=== PATIENT | male | born 1960 | race Caucasian/White ===

== ENCOUNTER 2016-10-23 14:23 | Observation (INO) | payer OTHER ==
[~2016-10-23] VITALS: Ht 193 cm; Wt 113.0 kg
[~2016-10-23 14:23] MED LIST: ASPI81TA82 PO
[2016-10-23 14:44] VITALS: BP 134/74; PULSE 60; RESP 24; O2SAT 95
[2016-10-23] MEDS ORDERED: ONDANSETRON HCL 4 MG/2 ML VIAL IV PUSH ONE ×2 (15:00→18:00)
[2016-10-23] MEDS ORDERED: HYDROmorphone HCL PF 1 MG/ML VIAL IV PUSH ONE (15:00)
[2016-10-23 15:08] VITALS: RESP 18; TEMP 98.3; O2SAT 95
--- NOTE | 2016-10-23 15:15 | PD ---
HPI Chief Complaint: Fall Time Seen by Provider: 14:55 Travel History International Travel<30 days: No Contact w/Intl Traveler<30days: No Traveled to known affect area: No History of Present Illness HPI 56-year-old male presents via EMS for evaluation after a fall. Prior to arrival he fell off of a ladder at approximately 7 feet height, landed on his back. He did hit the back of his head against the ground. Denies loss of consciousness. He is complaining of generalized pain along his neck, mid and lower back as well as some chest pain and upper abdominal pain. Pain is moderate, aggravated by movement. He endorses slight shortness of breath. Denies nausea or vomiting, headache, blurred vision, numbness or tingling or weakness or injury to the extremities. He does take aspirin daily, denies any other blood thinner use. He has no other complaints. PFSH Past Medical History Arthritis: No Asthma: No Atrial Fibrillation: Yes (CARDIOVERTED ) Blood Disorders: No Anxiety: No Depression: No Heart Rhythm Problems: Yes (AFIB) Cancer: No Cardiovascular Problems: Yes (AFIB/CARDIOVERSION X 1 YR AGO) High Cholesterol: No Chemotherapy: No Chest Pain: No Congestive Heart Failure: No COPD: No Cerebrovascular Accident: No Diabetes: No Diminished Hearing: No Endocrine: No GERD: No Genitourinary: No Headaches: No Hepatitis: No Hypertension: No Immune Disorder: No Kidney Stones: Yes Musculoskeletal: Yes (1983 RUPTURED L3-L5) Neurologic: No Psychiatric: No Reproductive: No Respiratory: No Migraines: Yes Myocardial Infarction: No Radiation Therapy: No Renal Failure: No Seizures: No Sleep Apnea: No Thyroid Disease: No Ulcer: No Past Surgical History Abdominal Surgery: Yes (RIGHT HERNIA REPAIR) Appendectomy: No Cholecystectomy: Yes Genitourinary Surgery: Yes Other Surgery: Yes Social History Alcohol Use: Yes (OCCAS) Tobacco Use: No Substance Use: No Allergies-Medications (Allergen,Severity, Reaction): Coded Allergies: Bee Sting (Verified Allergy, Mild, 11/27/14) Percocet (Verified Allergy, Mild, NAUSEATED, 11/27/14) Reported Meds & Prescriptions Reported Meds & Active Scripts Active Reported [place] ([place]) 1 Cap Zinc 25 Mg Tab Mg PO DAILY Vitamin D (Cholecalciferol) 2,000 Unit Cap Vit[employer] Energy Vitamin (Cyanocobalamin) 1,500 Mcg Tab Mcg SL DAILY Aspirin 81 Mg Chew 81 Mg CHEW DAILY Multiple Vitamin 1 Tab 1 Tab PO DAILY Review of Systems Except as stated in HPI: all other systems reviewed are Neg Physical Exam Narrative GENERAL: Well-developed well-nourished male in no acute distress cervical collar in place. SKIN: Warm and dry. HEAD: Atraumatic. Normocephalic. EYES: Pupils equal and round. No scleral icterus. No injection or drainage. ENT: No nasal bleeding or discharge. Mucous membranes pink and moist. NECK: Trachea midline. No JVD. CARDIOVASCULAR: Regular rate and rhythm. No murmur appreciated. RESPIRATORY: No accessory muscle use. Clear to auscultation. Breath sounds equal bilaterally. GASTROINTESTINAL: Abdomen soft, tender to palpation epigastrium/left upper quadrant without guarding. MUSCULOSKELETAL: No obvious deformities. Tender to palpation along cervical thoracic or lumbar midline spine. Tender to palpation mid chest wall. NEUROLOGICAL: Awake and alert. No obvious cranial nerve deficits. Motor grossly within normal limits. Normal speech. PSYCHIATRIC: Appropriate mood and affect; insight and judgment normal. Data Data Last Documented VS Vital Signs Date Time Temp Pulse Resp B/P Pulse Ox O2 Delivery O2 Flow Rate FiO2 10/23/16 17:37 92 Room Air 10/23/16 17:37 119/65 10/23/16 15:29 51 18 10/23/16 15:08 98.3 Orders Chest, Single Ap (10/23/16 14:53) Ct Brain W/O Iv Contrast(Rout) (10/23/16 14:53) Ct Cerv Spine W/O Contrast (10/23/16 14:53) Ct Abd/Pel W Iv Contrast(Rout) (10/23/16 14:53) Ct Thorax/ Chest W Iv Contrast (10/23/16 14:53) Ct Thor Spine W/O Contrast (10/23/16 14:53) Ct Lumb Spine W/O Contrast (10/23/16 14:53) Basic Metabolic Panel (Bmp) (10/23/16 14:53) Complete Blood Count With Diff (10/23/16 14:53) Prothrombin Time / Inr (Pt) (10/23/16 14:53) Act Partial Throm Time (Ptt) (10/23/16 14:53) Hydromorphone Pf Inj (Dilaudid Pf Inj) (10/23/16 15:00) Ondansetron Inj (Zofran Inj) (10/23/16 15:00) Ecg Monitoring (10/23/16 14:53) Oximetry (10/23/16 14:53) Iohexol 350 Inj (Omnipaque 350 Inj) (10/23/16 16:54) Hydromorphone Pf Inj (Dilaudid Pf Inj) (10/23/16 17:30) Ondansetron Inj (Zofran Inj) (10/23/16 18:00) Admit Order (Ed Use Only) (10/23/16 18:05) Ketorolac Inj (Toradol Inj) (10/23/16 18:15) Labs Laboratory Tests Test 10/23/16 14:55 White Blood Count 10.1 TH/MM3 Red Blood Count 4.51 MIL/MM3 Hemoglobin 13.9 GM/DL Hematocrit 40.0 % Mean Corpuscular Volume 88.6 FL Mean Corpuscular Hemoglobin 30.9 PG Mean Corpuscular Hemoglobin 34.9 % Concent Red Cell Distribution Width 13.3 % Platelet Count 230 TH/MM3 Mean Platelet Volume 7.6 FL Neutrophils (%) (Auto) 70.4 % Lymphocytes (%) (Auto) 21.7 % Monocytes (%) (Auto) 7.1 % Eosinophils (%) (Auto) 0.3 % Basophils (%) (Auto) 0.5 % Neutrophils # (Auto) 7.1 TH/MM3 Lymphocytes # (Auto) 2.2 TH/MM3 Monocytes # (Auto) 0.7 TH/MM3 Eosinophils # (Auto) 0.0 TH/MM3 Basophils # (Auto) 0.0 TH/MM3 CBC Comment DIFF FINAL Differential Total Cells 100 Counted Neutrophils % (Manual) 68 % Band Neutrophils % 11 % Lymphocytes % 13 % Monocytes % 4 % Eosinophils % 3 % Basophils % 1 % Neutrophils # (Manual) 8.0 TH/MM3 Differential Comment FINAL DIFF MANUAL Platelet Estimate NORMAL Platelet Morphology Comment NORMAL Spherocytes 1+ Ovalocytes 1+ Prothrombin Time 10.9 SEC Prothromb Time International 1.0 RATIO Ratio Activated Partial 23.5 SEC Thromboplast Time Sodium Level 140 MEQ/L Potassium Level 3.8 MEQ/L Chloride Level 106 MEQ/L Carbon Dioxide Level 26.7 MEQ/L Anion Gap 7 MEQ/L Blood Urea Nitrogen 14 MG/DL Creatinine 0.85 MG/DL Estimat Glomerular Filtration 93 ML/MIN Rate Random Glucose 103 MG/DL Calcium Level 8.9 MG/DL MDM Medical Decision Making Medical Screen Exam Complete: Yes Emergency Medical Condition: Yes Medical Record Reviewed: Yes Differential Diagnosis Compression fracture, retroperitoneal hematoma, contusion, strain, spinal cord injury, splenic laceration, pneumothorax, hemothorax Narrative Course 56-year-old male presents after falling off a ladder complaining of generalized neck, back pain as well as chest pain, mild shortness of breath and upper abdominal pain. On examination he has vertebral tenderness to palpation along the cervical thoracic and lumbar spine as well as epigastric/left upper quadrant tenderness, chest wall tenderness. Therefore CT imaging of the cervical, thoracic, lumbar spine as well as thorax and abdomen and pelvis have been ordered. The patient was given Dilaudid for pain control as well as Zofran for nausea. CT imaging is been reviewed. The cervical collar was removed. The patient's imaging studies were all negative. The patient received a second dose of Dilaudid because it continued to be in severe pain. We attempted to ambulate him however immediately upon standing he was nauseous and unable to ambulate more than one step. Discussed options with the patient including discharge with oral pain control, outpatient follow-up versus observational admission for IV pain medicine and after discussing with his he does not feel safe going home right now and this much pain. Therefore discussed with Dr. Soriano who is agreeable with admission to Dr. Champion. Diagnosis Primary Impression: Intractable back pain Admitting Information Admitting Physician Requests: David Resendiz October 23, 2016 15:15
[2016-10-23 15:19] LABS: AUTOMATED NEUTROPHIL # 7.1 TH/MM3 (1.8-7.7); BASOPHIL % 0.5 % (0.0-2.0); EOSINOPHIL % 0.3 % (0.0-4.0); HEMO FLAGS DIFF FINAL; LYMPH % 21.7 % (9.0-44.0); LYMPHOCYTE # 2.2 TH/MM3 (1.0-4.8); MEAN CELL VOLUME 88.6 FL (80.0-100.0); MEAN CORPUSCULAR HEMOGLOBIN 30.9 PG (27.0-34.0); MEAN CORPUSCULAR HGB CONC 34.9 % (32.0-36.0); MONO % 7.1 % (0.0-8.0); NEUT % 70.4 % (16.0-70.0); PLATELET COUNT 230 TH/MM3 (150-450); RED BLOOD COUNT 4.51 MIL/MM3 (4.50-5.90); RED CELL DISTRIBUTION WIDTH 13.3 % (11.6-17.2); WHITE BLOOD COUNT 10.1 TH/MM3 (4.0-11.0)
[2016-10-23 15:29] VITALS: BP 122/60; PULSE 51; RESP 18; O2SAT 94
[2016-10-23 15:29] LABS: APTT (PATIENT) 23.5 SEC (24.3-30.1); PROTHROMBIN TIME - PATIENT 10.9 SEC (9.8-11.6)
[2016-10-23] MEDS ORDERED: MISC1CAP2 (15:29)
[2016-10-23] MEDS ORDERED: MULTTAB67 PO (15:29)
[2016-10-23] MEDS ORDERED: ZINC25TA PO (15:29)
[2016-10-23] MEDS ORDERED: VITA200013 (15:29)
[2016-10-23] MEDS ORDERED: [UNRECOGNIZED DRUG - CODE] SL (15:29)
[2016-10-23] MEDS ORDERED: ASPI81CH CHEW (15:29)
[2016-10-23 15:44] LABS: BICARBONATE 26.7 MEQ/L (21.0-32.0); POTASSIUM 3.8 MEQ/L (3.5-5.1)
--- NOTE | 2016-10-23 16:06 | RADRPT ---
EXAM DATE/TIME: 10/23/2016 15:43 [facility] COMPARISON: CHEST SINGLE AP, November 27, 2014, 2:59. INDICATIONS : Back and chest pain after falling of a ladder, approximately 6 feet. MEDICAL HISTORY : Unobtainable. SURGICAL HISTORY : Unobtainable. ENCOUNTER: Initial ACUITY: 1 day PAIN SCORE: 8/10 LOCATION: Bilateral chest FINDINGS: A single view of the chest demonstrates the lungs to be symmetrically aerated without evidence of mas s, infiltrate or effusion. The cardiomediastinal contours are unremarkable. Osseous structures are intact. CONCLUSION: Normal examination. See Ackerman MD on October 23, 2016 at 16:05 Board Certified Radiologist. This report was verified electronically.
[2016-10-23 16:07] LABS: BANDS 11 % (0-6); BASOPHILS 1 % (0-2); EOSINOPHILS 3 % (0-4); POLYS (SEG NEUTROPHILS) 68 % (16-70); WBC DIFF SAMPLE 100
[2016-10-23 16:08] LABS: OVALOCYTES 1+ (NORMAL); PLATELET ESTIMATE SMEAR NORMAL (NORMAL); PLATELET MORPHOLOGY NORMAL (NORMAL); SCAN/DIFF FINAL DIFF MANUAL; SPHEROCYTES 1+ (NORMAL)
--- NOTE | 2016-10-23 16:30 | RADRPT ---
EXAM DATE/TIME: 10/23/2016 16:09 [facility] COMPARISON: CT BRAIN W/O CONTRAST, November 27, 2014, 4:32. INDICATIONS : Fall from ladder; head and neck pain. RADIATION DOSE: 56.35 CTDIvol (mGy) MEDICAL HISTORY : Cardiovascular disease. Renal calculi. SURGICAL HISTORY : Cholecystectomy. Inguinal hernia repair. ENCOUNTER: Initial ACUITY: 1 day PAIN SCALE: 4/10 LOCATION: cranial TECHNIQUE: Multiple contiguous axial images were obtained of the head. Using automated exposure control and adj ustment of the mA and/or kV according to patient size, radiation dose was kept as low as reasonably a chievable to obtain optimal diagnostic quality images. FINDINGS: CEREBRUM: The ventricles are normal for age. No evidence of midline shift, mass lesion, hemorrhage or acute in farction. No extra-axial fluid collections are seen. POSTERIOR FOSSA: The cerebellum and brainstem are intact. The 4th ventricle is midline. The cerebellopontine angle i s unremarkable. EXTRACRANIAL: The visualized portion of the orbits is intact. SKULL: The calvaria is intact. No evidence of skull fracture. CONCLUSION: Normal examination. See Ackerman MD on October 23, 2016 at 16:28 Board Certified Radiologist. This report was verified electronically.
[2016-10-23] MEDS ORDERED: IOHEXOL 350 MG/ML 10 ML VIAL (for RAD DIAG) IV ONE (16:54)
--- NOTE | 2016-10-23 16:56 | RADRPT ---
EXAM DATE/TIME: 10/23/2016 16:17 [facility] COMPARISON: No previous studies available for comparison. INDICATIONS : Fall from ladder, neck pain. RADIATION DOSE: 40.82 CTDIvol (mGy) MEDICAL HISTORY : Cardiovascular disease. Renal calculi. SURGICAL HISTORY : Inguinal hernia repair. Cholecystectomy. ENCOUNTER: Initial ACUITY: 1 day PAIN SCALE: 6/10 LOCATION: neck TECHNIQUE: Volumetric scanning of the cervical spine was performed. Multiplanar reconstructions in the sagittal, coronal and oblique axial planes were performed. Using automated exposure control and adjustment o f the mA and/or kV according to patient size, radiation dose was kept as low as reasonably achievable to obtain optimal diagnostic quality images. FINDINGS: VERTEBRAE: Normal vertebral body height. ALIGNMENT: No evidence of subluxation. C2-C3: The bony spinal canal is normal in size. No evidence of disc bulge or herniation. The neural forami na are bilaterally patent. C3-C4: The bony spinal canal is normal in size. No evidence of disc bulge or herniation. The neural forami na are bilaterally patent. C4-C5: The bony spinal canal is normal in size. No evidence of disc bulge or herniation. The neural forami na are bilaterally patent. C5-C6: The bony spinal canal is normal in size. No evidence of disc bulge or herniation. The neural forami na are bilaterally patent. C6-C7: The bony spinal canal is normal in size. No evidence of disc bulge or herniation. The neural forami na are bilaterally patent. C7-T1: The bony spinal canal is normal in size. No evidence of disc bulge or herniation. The neural forami na are bilaterally patent. CONCLUSION: Normal examination. See Ackerman MD on October 23, 2016 at 16:54 Board Certified Radiologist. This report was verified electronically.
--- NOTE | 2016-10-23 17:02 | RADRPT ---
EXAM DATE/TIME: 10/23/2016 16:25 [facility] COMPARISON: No previous studies available for comparison. INDICATIONS : Trauma; fall from ladder. IV CONTRAST: 95 cc Omnipaque 350 (iohexol) IV ; Cumulative dose for multiple exams. RADIATION DOSE: 10.06 CTDIvol (mGy) ; Combined studies - Thorax/Abdomen/Pelvis MEDICAL HISTORY : Cardiovascular disease. Renal calculi. SURGICAL HISTORY : Inguinal hernia repair. Cholecystectomy. ENCOUNTER: Initial ACUITY: 1 day PAIN SCALE: 4/10 LOCATION: Bilateral chest TECHNIQUE: Volumetric scanning of the chest was performed. Using automated exposure control and adjustment of t he mA and/or kV according to patient size, radiation dose was kept as low as reasonably achievable to obtain optimal diagnostic quality images. FINDINGS: LUNGS: There is no consolidation or pneumothorax. No concerning pulmonary nodule is visualized. PLEURA: There is no pleural thickening or pleural effusion. MEDIASTINUM: The heart and great vessels demonstrate no acute abnormality. There is no mediastinal or hilar lymph adenopathy. AXILLAE: Within normal limits. No lymphadenopathy. SKELETAL: Within normal limits for patient age. MISCELLANEOUS: The visualized upper abdominal organs demonstrate no acute abnormality. CONCLUSION: Normal examination. Cholecystectomy clips. See Ackerman MD on October 23, 2016 at 17:00 Board Certified Radiologist. This report was verified electronically.
--- NOTE | 2016-10-23 17:04 | RADRPT ---
EXAM DATE/TIME: 10/23/2016 16:20 [facility] COMPARISON: No previous studies available for comparison. INDICATIONS : Trauma; fall from ladder. IV CONTRAST: 95 cc Omnipaque 350 (iohexol) IV ; Cumulative dose for multiple exams. ORAL CONTRAST: No oral contrast ingested. RADIATION DOSE: 10.06 CTDIvol (mGy) ; Combined studies - Thorax/Abdomen/Pelvis MEDICAL HISTORY : Cardiovascular disease. Renal calculi. SURGICAL HISTORY : Inguinal hernia repair. Cholecystectomy. ENCOUNTER: Initial ACUITY: 1 day PAIN SCALE: 5/10 LOCATION: lower quadrant TECHNIQUE: Volumetric scanning of the abdomen and pelvis was performed. Using automated exposure control and ad justment of the mA and/or kV according to patient size, radiation dose was kept as low as reasonably achievable to obtain optimal diagnostic quality images. FINDINGS: LOWER LUNGS: The visualized lower lungs are clear. LIVER: Homogeneous density without lesion. There is no dilation of the biliary tree. Status post cholecyste ctomy. SPLEEN: Normal size without lesion. PANCREAS: Within normal limits. KIDNEYS: Normal in size and shape. There is no mass, stone or hydronephrosis. ADRENAL GLANDS: Within normal limits. VASCULAR: There is no aortic aneurysm. BOWEL/MESENTERY: The stomach, small bowel, and colon demonstrate no acute abnormality. There is no free intraperitone al air or fluid. ABDOMINAL WALL: Within normal limits. RETROPERITONEUM: There is no lymphadenopathy. BLADDER: No wall thickening or mass. REPRODUCTIVE: Within normal limits. INGUINAL: There is no lymphadenopathy or hernia. MUSCULOSKELETAL: Within normal limits for patient age. CONCLUSION: Normal examination. See Ackerman MD on October 23, 2016 at 17:02 Board Certified Radiologist. This report was verified electronically.
--- NOTE | 2016-10-23 17:24 | RADRPT ---
EXAM DATE/TIME: 10/23/2016 16:25 [facility] COMPARISON: No previous studies available for comparison. INDICATIONS : Trauma; fall from ladder. RADIATION DOSE: ; Reconstructed from previous dataset MEDICAL HISTORY : Cardiovascular disease. Renal calculi. SURGICAL HISTORY : Inguinal hernia repair. Cholecystectomy. ENCOUNTER: Initial ACUITY: 1 day PAIN SCALE: 7/10 LOCATION: lower back. TECHNIQUE: Volumetric scanning of the lumbar spine was performed. Multiplanar reconstructions in the sagittal, coronal and oblique axial planes were performed. Using automated exposure control and adjustment of the mA and/or kV according to patient size, radiation dose was kept as low as reasonably achievable t o obtain optimal diagnostic quality images. FINDINGS: VERTEBRAE: Normal vertebral body height. ALIGNMENT: No evidence of subluxation. T12-L1: The thecal sac has a normal diameter. No evidence of disc bulge or protrusion. The neural foramina are patent bilaterally. L1-L2: The thecal sac has a normal diameter. No evidence of disc bulge or protrusion. The neural foramina are patent bilaterally. L2-L3: The thecal sac has a normal diameter. No evidence of disc bulge or protrusion. The neural foramina are patent bilaterally. L3-L4: The thecal sac has a normal diameter. No evidence of disc bulge or protrusion. The neural foramina are patent bilaterally. L4-L5: The thecal sac has a normal diameter. No evidence of disc bulge or protrusion. The neural foramina are patent bilaterally. L5-S1: The thecal sac has a normal diameter. No evidence of disc bulge or protrusion. The neural foramina are patent bilaterally. CONCLUSION: Normal examination. See Ackerman MD on October 23, 2016 at 17:22 Board Certified Radiologist. This report was verified electronically.
--- NOTE | 2016-10-23 17:29 | RADRPT ---
EXAM DATE/TIME: 10/23/2016 16:25 [facility] COMPARISON: No previous studies available for comparison. INDICATIONS : Trauma; fall, back pain. RADIATION DOSE: ; Reconstructed from previous dataset MEDICAL HISTORY : Cardiovascular disease. Renal calculi. SURGICAL HISTORY : Inguinal hernia repair. Cholecystectomy. ENCOUNTER: Initial ACUITY: 1 day PAIN SCALE: 7/10 LOCATION: mid-back TECHNIQUE: Volumetric scanning of the thoracic spine was performed. Multiplanar reconstructions in the sagittal , coronal and oblique axial planes were performed. Using automated exposure control and adjustment o f the mA and/or kV according to patient size, radiation dose was kept as low as reasonably achievable to obtain optimal diagnostic quality images. FINDINGS: The vertebral bodies of the thoracic spine are in normal alignment without evidence of subluxation. Vertebral body height is maintained. No fractures are seen. T1-T2: Normal. T2-T3: The thecal sac has a normal diameter. No evidence of disc bulge or protrusion. T3-T4: The thecal sac has a normal diameter. No evidence of disc bulge or protrusion. T4-T5: The thecal sac has a normal diameter. No evidence of disc bulge or protrusion. T5-T6: The thecal sac has a normal diameter. No evidence of disc bulge or protrusion. T6-T7: The thecal sac has a normal diameter. No evidence of disc bulge or protrusion. T7-T8: The thecal sac has a normal diameter. No evidence of disc bulge or protrusion. T8-T9: The thecal sac has a normal diameter. No evidence of disc bulge or protrusion. T9-T10: The thecal sac has a normal diameter. No evidence of disc bulge or protrusion. T10-T11: The thecal sac has a normal diameter. No evidence of disc bulge or protrusion. T11-T12: The thecal sac has a normal diameter. No evidence of disc bulge or protrusion. T12-L1: The thecal sac has a normal diameter. No evidence of disc bulge or protrusion. CONCLUSION: Normal examination. No endplate fracture is identified. See Ackerman MD on October 23, 2016 at 17:26 Board Certified Radiologist. This report was verified electronically.
[2016-10-23] MEDS ORDERED: HYDROmorphone HCL PF 1 MG/ML VIAL IVS ONE (17:30)
[2016-10-23 17:37] VITALS: BP 119/65
[2016-10-23] MEDS ORDERED: KETOROLAC TROMETHAMINE 30 MG/ML (IVP) VIAL IV PUSH ONE ×2 (18:15)
--- NOTE | 2016-10-23 18:23 | HHI.HP ---
HPI Service [facility] Hospitalists Primary Care Physician Shankar Black MD Admission Diagnosis Intractable pain Chief Complaint: back pain after fall, unable to ambulate due to pain Travel History International Travel<30 Days: No Contact w/Intl Traveler <30 Da: No Traveled to Known Affected Are: No History of Present Illness 56-year-old relatively healthy male presents to the ER after a fall which occurred earlier today from a ladder. He says that he was on the "Little giant " ladder approximately 7 or 8 foot in the air when he was power washing his chimney. He lost balance and fell backwards off the ladder into a hayes grimm is known to the ground which fortunately was padded with grass. He denies any head trauma or loss of consciousness. No loss of bowel or bladder function. He has noted pain and what he says is L3 4 and 5 area where he has had pain before regarding some disc problems. He had multiple images done earlier all were negative for fracture however he was unable to ambulate due to significant pain and spasm in his lower back. Feels somewhat better after the Toradol shot and other analgesics he has received. Review of Systems Constitutional: DENIES: Diaphoretic episodes, Fatigue, Fever, Weight gain, Weight loss, Chills, Dizziness, Change in appetite, Night Sweats Endocrine: DENIES: Heat/cold intolerance, Polydipsia, Polyuria, Polyphagia Eyes: DENIES: Blurred vision, Diplopia, Eye inflammation, Eye pain, Vision loss , Photosensitivity, Double Vision Ears, nose, mouth, throat: DENIES: Tinnitus, Hearing loss, Vertigo, Nasal discharge, Oral lesions, Throat pain, Hoarseness, Ear Pain, Running Nose, Epistaxis, Sinus Pain, Toothache, Odynophagia Respiratory: DENIES: Apneas, Cough, Snoring, Wheezing, Hemoptysis, Sputum production, Shortness of breath Cardiovascular: DENIES: Chest pain, Palpitations, Syncope, Dyspnea on Exertion , PND, Lower Extremity Edema, Orthopnea, Claudication Gastrointestinal: DENIES: Abdominal pain, Black stools, Bloody stools, BRB per rectum, Constipation, Diarrhea, GERD, Nausea, Reflux, Vomiting, Difficulty Swallowing, Anorexia, See HPI Musculoskeletal: COMPLAINS OF: Joint pain, Back pain Integumentary: DENIES: Abnormal pigmentation, Nail changes, Pruritus, Rash Hematologic/lymphatic: DENIES: Bruising, Lymphadenopathy Immunologic/allergic: DENIES: Eczema, Urticaria Psychiatric: DENIES: Anxiety, Confusion, Mood changes, Depression, Hallucinations, Agitation, Suicidal Ideation, Homicidal Ideation, Delusions, History of Bipolar, History of Schizophrenia Past Family Social History Past Medical History Hx of Afib BPH IFG obesity vit D def Past Surgical History Bilat shoulder arthroscopy T&A Plantar fasciectomy Lap choly 2007 [facility] rpr 2006 Reported Medications ASA 81mg/d Fish oil 1000mg/d MVI one daily Allergies: Coded Allergies: Bee Sting (Verified Allergy, Mild, 11/27/14) Percocet (Verified Allergy, Mild, NAUSEATED, 11/27/14) Family History Father at 57 of [place] Mother had osteoA FH of Mult myeloma, HTN, Parkinson's Social History No tobacco since 1982, prior to that only smoked 2-3 cigarettes/d for a couple of years Drinks one to 2 alcoholic beverages occasionally on the weekends. Denies illicit drug use. 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 Has been for approximately 3 years. This is second marriage. Originally from [place]. Physical Exam Vital Signs Vital Signs Date Time Temp Pulse Resp B/P Pulse Ox O2 Delivery O2 Flow Rate FiO2 10/23/16 17:37 92 Room Air 10/23/16 17:37 119/65 10/23/16 15:29 51 18 122/60 94 Room Air 10/23/16 15:12 93 Room Air 10/23/16 15:08 98.3 18 95 Room Air 10/23/16 14:44 60 24 134/74 95 Physical Exam GENERAL: This is a well-nourished, well-developed patient with muscular build, in no apparent distress. Alert and oriented. Cooperative. SKIN: Few areas of erythema on right lower back, no ecchymosis. Cool and dry. HEAD: Atraumatic. Normocephalic. No temporal or scalp tenderness. EYES: Pupils equal round and reactive. Extraocular motions intact. No scleral icterus. No injection or drainage. ENT: Nose without bleeding, purulent drainage or septal hematoma. Airway patent. NECK: Trachea midline. No JVD or lymphadenopathy. Supple, nontender, no meningeal signs. CARDIOVASCULAR: Regular rate and rhythm without murmurs, gallops, or rubs. RESPIRATORY: Clear to auscultation. Breath sounds equal bilaterally. No wheezes , rales, or rhonchi. GASTROINTESTINAL: Abdomen soft, non-tender, nondistended. No hepato-splenomegaly , or palpable masses. No guarding. Bowel sounds normal. MUSCULOSKELETAL: Extremities without clubbing, cyanosis, or edema. Tenderness to palpation with noted paralumbar spasm on the right. No central tenderness to palpation.. No calf tenderness. NEUROLOGICAL: Awake and alert. Cranial nerves II through XII intact. Motor and sensory grossly within normal limits. Five out of 5 muscle strength in all muscle groups. Normal speech. Laboratory Laboratory Tests Test 10/23/16 14:55 White Blood Count 10.1 Red Blood Count 4.51 Hemoglobin 13.9 Hematocrit 40.0 Mean Corpuscular Volume 88.6 Mean Corpuscular Hemoglobin 30.9 Mean Corpuscular Hemoglobin 34.9 Concent Red Cell Distribution Width 13.3 Platelet Count 230 Mean Platelet Volume 7.6 Neutrophils (%) (Auto) 70.4 Lymphocytes (%) (Auto) 21.7 Monocytes (%) (Auto) 7.1 Eosinophils (%) (Auto) 0.3 Basophils (%) (Auto) 0.5 Neutrophils # (Auto) 7.1 Lymphocytes # (Auto) 2.2 Monocytes # (Auto) 0.7 Eosinophils # (Auto) 0.0 Basophils # (Auto) 0.0 CBC Comment DIFF FINAL Differential Total Cells 100 Counted Neutrophils % (Manual) 68 Band Neutrophils % 11 Lymphocytes % 13 Monocytes % 4 Eosinophils % 3 Basophils % 1 Neutrophils # (Manual) 8.0 Differential Comment FINAL DIFF MANUAL Platelet Estimate NORMAL Platelet Morphology Comment NORMAL Spherocytes 1+ Ovalocytes 1+ Prothrombin Time 10.9 Prothromb Time International 1.0 Ratio Activated Partial 23.5 Thromboplast Time Sodium Level 140 Potassium Level 3.8 Chloride Level 106 Carbon Dioxide Level 26.7 Anion Gap 7 Blood Urea Nitrogen 14 Creatinine 0.85 Estimat Glomerular Filtration 93 Rate Random Glucose 103 Calcium Level 8.9 Result Diagram: 10/23/16 1455 10/23/16 1455 Imaging Last 72 hours Impressions Thoracic Spine CT 10/23/16 145 Signed Impressions: Service Date/Time: October 16:25 - CONCLUSION: Normal examination. No endplate fracture is identified. See Ackerman MD Lumbar Spine CT 10/23/16 1453 Signed Impressions: Service Date/Time: October 16:25 - CONCLUSION: Normal examination. See Ackerman MD Head CT 10/23/16 1453 Signed Impressions: Service Date/Time: October 16:09 - CONCLUSION: Normal examination. See Ackerman MD Chest X-Ray 10/23/16 1453 Signed Impressions: Service Date/Time: October 15:43 - CONCLUSION: Normal examination. See Ackerman MD Chest CT 10/23/16 1453 Signed Impressions: Service Date/Time: October 16:25 - CONCLUSION: Normal examination. Cholecystectomy clips. See Ackerman MD Cervical Spine CT 10/23/16 1453 Signed Impressions: Service Date/Time: , October 23, 2016 16:17 - CONCLUSION: Normal examination. See Ackerman MD Abdomen/Pelvis CT 10/23/16 1453 Signed Impressions: Service Date/Time: October 16:20 - CONCLUSION: Normal examination. See Ackerman MD Assessment and Plan Problem List: (1) Intractable back pain Status: Acute Plan: Status post fall from ladder as noted above. No apparent loss of consciousness. We'll continue pain medications and have physical therapy see the patient tomorrow. I'll provide IV fluids tonight to help with any possible lactic acid or CK accumulation after his fall. (2) Fall from ladder Status: Acute Plan: As noted above. (3) Hx of atrial fibrillation, no current medication Status: Acute Plan: Regular rate and rhythm on exam. Status post ablation in the past. Assessment and Plan Hopefully discharge home tomorrow. Code Status Full Discussed Condition With Patient and ER healthcare provider. Juanjose Soriano MD PhD October 23, 2016 18:22
[2016-10-23 19:52] VITALS: BP 124/59; PULSE 63; RESP 18; O2SAT 96
[2016-10-23] MEDS: ONDANSETRON HCL 4 MG/2 ML VIAL IV PUSH PRN (23:47)
[2016-10-23] MEDS: ACETAMINOPHEN/HYDROcodone 325 MG/10 MG TAB PO PRN (23:47)
[2016-10-23] MEDS: HYDROmorphone HCL PF 1 MG/ML VIAL IV PUSH PRN (23:47)
[2016-10-24 00:41] VITALS: BP 111/55; PULSE 59; RESP 19; TEMP 98; O2SAT 95
[2016-10-24 04:15] VITALS: BP 110/54; PULSE 60; RESP 19; TEMP 98; O2SAT 95
[2016-10-24] MEDS ORDERED: KETOROLAC TROMETHAMINE 30 MG/ML (IVP) VIAL IV PUSH ONE (05:15)
[2016-10-24] MEDS ORDERED: CYCLOBENZAPRINE HCL 10 MG TAB PO PRN (05:15)
[2016-10-24 07:23] VITALS: BP 128/68; PULSE 55; RESP 18; TEMP 97.5; O2SAT 95
[2016-10-24] MEDS: ACETAMINOPHEN/HYDROcodone 325 MG/10 MG TAB PO PRN (07:44)
[2016-10-24] MEDS: ONDANSETRON HCL 4 MG/2 ML VIAL IV PUSH PRN (07:45)
[2016-10-24] MEDS ORDERED: NON-FORMULARY DRUG (Multiple Vitamin 1 TAB) PO SCH (09:00)
[2016-10-24] MEDS ORDERED: ASPIRIN 81 MG CHEW TAB CHEW SCH (09:00)
[2016-10-24] MEDS ORDERED: MULTIVITAMIN TAB PO SCH (09:00)
--- NOTE | 2016-10-24 09:20 | HHI.PR ---
Subjective Remarks Pt still feeling sore today but pain is improving today. He is able to sit up in bed with some pain but hasn't walked around yet. Objective Vitals Vital Signs Date Time Temp Pulse Resp B/P Pulse Ox O2 Delivery O2 Flow Rate FiO2 10/24/16 07:23 97.5 55 18 128/68 95 10/24/16 04:15 98.0 60 19 110/54 95 10/24/16 00:41 98.0 59 19 111/55 95 10/23/16 19:52 63 18 124/59 96 Room Air 10/23/16 19:14 16 10/23/16 17:37 92 Room Air 10/23/16 17:37 119/65 10/23/16 15:29 51 18 122/60 94 Room Air 10/23/16 15:12 93 Room Air 10/23/16 15:08 98.3 18 95 Room Air 10/23/16 14:44 60 24 134/74 95 Result Diagram: 10/23/16 1455 10/23/16 1455 Other Results Laboratory Tests Test 10/23/16 14:55 White Blood Count 10.1 TH/MM3 Red Blood Count 4.51 MIL/MM3 Hemoglobin 13.9 GM/DL Hematocrit 40.0 % Mean Corpuscular Volume 88.6 FL Mean Corpuscular Hemoglobin 30.9 PG Mean Corpuscular Hemoglobin 34.9 % Concent Red Cell Distribution Width 13.3 % Platelet Count 230 TH/MM3 Mean Platelet Volume 7.6 FL Neutrophils (%) (Auto) 70.4 % Lymphocytes (%) (Auto) 21.7 % Monocytes (%) (Auto) 7.1 % Eosinophils (%) (Auto) 0.3 % Basophils (%) (Auto) 0.5 % Neutrophils # (Auto) 7.1 TH/MM3 Lymphocytes # (Auto) 2.2 TH/MM3 Monocytes # (Auto) 0.7 TH/MM3 Eosinophils # (Auto) 0.0 TH/MM3 Basophils # (Auto) 0.0 TH/MM3 CBC Comment DIFF FINAL Differential Total Cells 100 Counted Neutrophils % (Manual) 68 % Band Neutrophils % 11 % Lymphocytes % 13 % Monocytes % 4 % Eosinophils % 3 % Basophils % 1 % Neutrophils # (Manual) 8.0 TH/MM3 Differential Comment FINAL DIFF MANUAL Platelet Estimate NORMAL Platelet Morphology Comment NORMAL Spherocytes 1+ Ovalocytes 1+ Prothrombin Time 10.9 SEC Prothromb Time International 1.0 RATIO Ratio Activated Partial 23.5 SEC Thromboplast Time Sodium Level 140 MEQ/L Potassium Level 3.8 MEQ/L Chloride Level 106 MEQ/L Carbon Dioxide Level 26.7 MEQ/L Anion Gap 7 MEQ/L Blood Urea Nitrogen 14 MG/DL Creatinine 0.85 MG/DL Estimat Glomerular Filtration 93 ML/MIN Rate Random Glucose 103 MG/DL Calcium Level 8.9 MG/DL Imaging Last 72 hours Impressions Thoracic Spine CT 10/23/161452 Signed Impressions: Service Date/Time: October 16:25 - CONCLUSION: Normal examination. No endplate fracture is identified. See Ackerman MD Lumbar Spine CT 10/23/161452 Signed Impressions: Service Date/Time: October 16:25 - CONCLUSION: Normal examination. See Ackerman MD Head CT 10/23/161452 Signed Impressions: Service Date/Time: October 16:09 - CONCLUSION: Normal examination. See Ackerman MD Chest X-Ray 10/23/161452 Signed Impressions: Service Date/Time: October 15:43 - CONCLUSION: Normal examination. See Ackerman MD Chest CT 10/23/161452 Signed Impressions: Service Date/Time: October 16:25 - CONCLUSION: Normal examination. Cholecystectomy clips. See Ackerman MD Cervical Spine CT 10/23/161452 Signed Impressions: Service Date/Time: October 16:17 - CONCLUSION: Normal examination. See Ackerman MD Abdomen/Pelvis CT 10/23/16 145 Signed Impressions: Service Date/Time: October 16:20 - CONCLUSION: Normal examination. See Ackerman MD Objective Remarks General: NAD, AAOx3 Chest: CTA Cardiac: Regular AbdL +BS, soft ND/NT Ext: No edema A/P Problem List: (1) Intractable back pain Status: Acute Plan: Status post fall from ladder as noted above. No apparent loss of consciousness. We'll continue pain medications and have physical therapy see the patient tomorrow. I'll provide IV fluids tonight to help with any possible lactic acid or CK accumulation after his fall. (2) Fall from ladder Status: Acute Plan: As noted above. (3) Hx of atrial fibrillation, no current medication Status: Acute Plan: Regular rate and rhythm on exam. Status post ablation in the past. Assessment and Plan Patient examined. Assessment and plan formulated with Amrita Reed PA-C. I agree with the above. stable. eager for d/c. pain and nausea meds. f/u pcp as needed. Amrita Reed October 24, 2016 09:20 Roosevelt Champion MD October 24, 2016 13:21
[2016-10-24 11:23] VITALS: BP 122/67; PULSE 62; RESP 17; TEMP 97.8; O2SAT 94
[2016-10-24] MEDS: HYDROmorphone HCL PF 1 MG/ML VIAL IV PUSH PRN (12:12)
--- NOTE | 2016-10-24 13:15 | HHI.DCPOC ---
Discharge Care Plan Diagnosis: (1) Fall from ladder (2) Intractable back pain (3) Hx of atrial fibrillation, no current medication Goals to Promote Your Health * To prevent worsening of your condition and complications * To maintain your health at the optimal level Directions to Meet Your Goals Take your medications as prescribed Follow your dietary instruction Follow activity as directed Keep your appointments as scheduled Take your immunizations and boosters as scheduled If your symptoms worsen call your PCP, if no PCP go to Urgent Care Center or Emergency Room Smoking is Dangerous to Your Health. Avoid second hand smoke Call the 24-hour hour crisis hotline for domestic abuse at Amrita Reed October 24, 2016 13:15
[2016-10-24] MEDS ORDERED: ZOFR4TAB3 SL (13:19)
[2016-10-24] MEDS ORDERED: HYDR-3583 PO (13:20)
[2016-10-24 15:00] VITALS: BP 126/74; PULSE 53; RESP 17; TEMP 97.3; O2SAT 94
== END 2016-10-24 15:44 | disposition home or self-care (01) ==
LOC: NEDAMB 14:23 → NEDA 18:07 → NEPGCP 10-24 00:22
PROVIDERS: ADMIT Hospitalist; ATTEND Hospitalist
DX: M54.2 Cervicalgia (principal); M54.5 Low back pain; R10.10 Upper abdominal pain, unspecified; R07.9 Chest pain, unspecified; W11.XXXA Fall on and from ladder, initial encounter; R06.02 Shortness of breath; I48.91 Unspecified atrial fibrillation; M54.9 Dorsalgia, unspecified
CPT/HCPCS: 70450; 71010; 71260; 72125; 72128; 72131; 74177; 80048; 85007; 85027; 85610; 85730; 96374; 96375; 96376; 97162; 99285; G0378; G8987; G8988; J1170; J1885; J2405; Q9967; 85025

== ENCOUNTER 2017-03-23 03:38 | Emergency (ER) | payer OTHER ==
[~2017-03-23] VITALS: Ht 193 cm; Wt 110.0 kg
[~2017-03-23 03:38] MED LIST changes: +ASPI81CH CHEW; -ASPI81TA82 PO; +HYDR-3583 PO; +MISC1CAP2; +MULTTAB67 PO; +VITA200013; +ZINC25TA PO; +ZOFR4TAB3 SL; +[UNRECOGNIZED DRUG - CODE] SL
[2017-03-23 03:45] VITALS: BP 140/85; PULSE 95; RESP 20; TEMP 97.8; O2SAT 97
--- NOTE | 2017-03-23 04:26 | PD ---
HPI Chief Complaint: Cold / Flu Symptoms Time Seen by Provider: 03:59 Travel History International Travel<30 days: No Contact w/Intl Traveler<30days: No Traveled to known affect area: No History of Present Illness HPI The patient is a 56-year-old male that complains of a headache behind his left eye, throbbing in nature, 8/10 in severity and feels like he got punched in the nose initially. He does have a mild cough and rhinorrhea. He does have a history of migraine headache in the past when he was much younger. The headache was of gradual onset and gradually started worsening since the headache began at 8 PM tonight. He denies any focal neurologic change. He does have photophobia. He does have nausea without vomiting. He denies any fever. The headache is not a thunderclap onset. His past medical history includes intermittent atrial fibrillation. He is not on any anticoagulants. He states he required cardioversion at one time. He has never had ablation therapy. PFSH Past Medical History Arthritis: No Asthma: No Atrial Fibrillation: Yes (CARDIOVERTED ) Blood Disorders: No Anxiety: No Depression: No Heart Rhythm Problems: Yes (AFIB) Cancer: No Cardiovascular Problems: Yes (AFIB/CARDIOVERSION X 1 YR AGO) High Cholesterol: No Chemotherapy: No Chest Pain: No Congestive Heart Failure: No COPD: No Cerebrovascular Accident: No Diabetes: No Diminished Hearing: No Endocrine: No GERD: No Genitourinary: No Headaches: No Hepatitis: No Hypertension: No Immune Disorder: No Kidney Stones: Yes Musculoskeletal: Yes (1983 RUPTURED L3-L5) Neurologic: No Psychiatric: No Reproductive: No Respiratory: No Migraines: Yes Myocardial Infarction: No Radiation Therapy: No Renal Failure: No Seizures: No Sleep Apnea: No Thyroid Disease: No Ulcer: No Tetanus Vaccination: Unknown Influenza Vaccination: No Past Surgical History Abdominal Surgery: Yes (RIGHT HERNIA REPAIR) Appendectomy: No Cholecystectomy: Yes Eye Surgery: Yes (bilateral ) Genitourinary Surgery: Yes Social History Alcohol Use: Yes (social) Tobacco Use: No Substance Use: No Allergies-Medications (Allergen,Severity, Reaction): Coded Allergies: bee venom protein (honey bee) (Unverified Allergy, Mild, 03/23/17) oxycodone (Unverified Allergy, Mild, NAUSEATED, 03/23/17) Reported Meds & Prescriptions Reported Meds & Active Scripts Active No Active Prescriptions or Reported Medications Review of Systems Except as stated in HPI: all other systems reviewed are Neg Physical Exam Narrative GENERAL: The patient is alert, oriented 3 in moderate apparent distress with his left-sided headache. His vital signs show blood pressure 140/85 but otherwise normal. SKIN: Focused skin assessment warm/dry. HEAD: Atraumatic. Normocephalic. EYES: Pupils equal and round. No scleral icterus. No injection or drainage. ENT: No nasal bleeding or discharge. Mucous membranes pink and moist. NECK: Trachea midline. No JVD. There is no meningismus and the patient flexes neck fully without any hesitation so that the chin touches the chest. CARDIOVASCULAR: Regular rate and rhythm. No murmur appreciated. RESPIRATORY: No accessory muscle use. Clear to auscultation. Breath sounds equal bilaterally. GASTROINTESTINAL: Abdomen soft, non-tender, nondistended. Hepatic and splenic margins not palpable. MUSCULOSKELETAL: No obvious deformities. No clubbing. No cyanosis. No edema. NEUROLOGICAL: Awake and alert. No obvious cranial nerve deficits. Motor grossly within normal limits. Normal speech. PSYCHIATRIC: Appropriate mood and affect; insight and judgment normal. Data Data Last Documented VS Vital Signs Date Time Temp Pulse Resp B/P (MAP) Pulse Ox O2 Delivery O2 Flow Rate FiO2 03/23/17 06:14 96 107/66 (80) 98 Room Air 03/23/17 05:55 16 03/23/17 03:45 97.8 Orders Orders Ondansetron Inj (Zofran Inj) (03/23/17 04:30) Sodium Chlor 0.9% 1000 Ml Inj (Ns 1000 M (03/23/17 04:30) Sumatriptan Inj (Imitrex Inj) (03/23/17 04:30) Complete Blood Count With Diff (03/23/17 04:19) Comprehensive Metabolic Panel (03/23/17 04:19) Urinalysis - C+S If Indicated (03/23/17 04:19) Prochlorperazine Inj (Compazine Inj) (03/23/17 05:00) Ct Brain W/O Iv Contrast(Rout) (03/23/17 04:48) Ketorolac Inj (Toradol Inj) (03/23/17 05:00) Labs Laboratory Tests Test 03/23/17 04:28 03/23/17 04:30 White Blood Count 7.8 TH/MM3 Red Blood Count 4.50 MIL/MM3 Hemoglobin 13.9 GM/DL Hematocrit 41.1 % Mean Corpuscular Volume 91.3 FL Mean Corpuscular Hemoglobin 31.0 PG Mean Corpuscular Hemoglobin Concent 34.0 % Red Cell Distribution Width 12.7 % Platelet Count 240 TH/MM3 Mean Platelet Volume 7.4 FL Neutrophils (%) (Auto) 63.2 % Lymphocytes (%) (Auto) 27.6 % Monocytes (%) (Auto) 7.5 % Eosinophils (%) (Auto) 0.9 % Basophils (%) (Auto) 0.8 % Neutrophils # (Auto) 4.8 TH/MM3 Lymphocytes # (Auto) 2.2 TH/MM3 Monocytes # (Auto) 0.6 TH/MM3 Eosinophils # (Auto) 0.1 TH/MM3 Basophils # (Auto) 0.1 TH/MM3 CBC Comment DIFF FINAL Differential Comment Blood Urea Nitrogen 19 MG/DL Creatinine 0.98 MG/DL Random Glucose 125 MG/DL Total Protein 6.6 GM/DL Albumin 3.5 GM/DL Calcium Level 8.4 MG/DL Alkaline Phosphatase 42 U/L Aspartate Amino Transf (AST/SGOT) 12 U/L Alanine Aminotransferase (ALT/SGPT) 17 U/L Total Bilirubin 0.5 MG/DL Sodium Level 139 MEQ/L Potassium Level 3.8 MEQ/L Chloride Level 105 MEQ/L Carbon Dioxide Level 26.4 MEQ/L Anion Gap 8 MEQ/L Estimat Glomerular Filtration Rate 79 ML/MIN Urine Color YELLOW Urine Turbidity SLIGHT Urine pH 6.0 Urine Specific Sayre 1.020 Urine Protein NEG mg/dL Urine Glucose (UA) NEG mg/dL Urine Ketones NEG mg/dL Urine Occult Blood TRACE Urine Nitrite NEG Urine Bilirubin NEG Urine Leukocyte Esterase NEG Urine RBC 4-9 /hpf Urine WBC 0-2 /hpf Urine Squamous Epithelial Cells 0-5 /hpf Urine Amorphous Sediment SMALL Urine Mucus MOD /lpf Microscopic Urinalysis Comment CULT NOT INDICATED MDM Medical Decision Making Medical Screen Exam Complete: Yes Emergency Medical Condition: Yes Medical Record Reviewed: Yes Interpretation(s) The urine shows moderate mucus, 4-9 red cells but is otherwise normal and culture is not indicated. The complete metabolic profile shows a BUN of 19, glucose 125, GFR of 79, calcium of 8.4 but is otherwise normal. The CBC is normal. The CT brain shows no evidence of acute intercranial pathology and no masses are identified. Differential Diagnosis Migraine headache, tension headache, sinusitis, cluster headache, tension/ migraine combination headache, intracranial bleed-unlikely, occult infection, electrolyte disorder Narrative Course It is now 0628 and the patient's headache is a 1/10. Because he responded to headache medications normally given 2 migraine and he has nausea and he has some photophobia and a previous history of migraine headache 1, we we'll call this a migraine headache tonight. His headache was also one-sided, on the left. There is no evidence for intracranial bleed, brain tumor, colon infection , electrolyte disorder or any of the other possibilities listed above. Plan: The patient will be given Zofran and Percocet. Diagnosis Primary Impression: Migraine headache Additional Instructions: The Zofran is one tablet every 4-6 hours as needed for nausea. The Fioricet is 2 tablets every 4-6 hours as needed at the beginning of the headache. Do not drink alcohol or drive on the Fioricet. Follow-up with your primary care physician this week. Med/Other Pt SpecificInfo: Prescription(s) given Scripts Qtcshukhbl-Pquqyshzvfxhp-Xrpfhktd (Fioricet) 50-300-40 Mg Cap 1-2 CAP PO Q6H Y for HEADACHE, #30 CAP 0 Refills Prov: aIn Chiu MD 03/23/17 Ondansetron (Zofran) 4 Mg Tab 4 MG PO Q6HR Y for NAUSEA OR VOMITING, #28 TAB 0 Refills Prov: Ian Chiu MD 03/23/17 Disposition: 01 DISCHARGE HOME Condition: Stable Ian Chiu MD Mar 23, 2017 04:26
[2017-03-23] MEDS ORDERED: ONDANSETRON HCL 4 MG/2 ML VIAL IV ONE (04:30)
[2017-03-23] MEDS ORDERED: SUMAtriptan INJ 6 MG/0.5 ML VIAL SQ ONE (04:30)
[2017-03-23] MEDS ORDERED: SODIUM CHLOR 0.9% 1000 ML INJ 1,000 ML IV SCH (04:30)
[2017-03-23 04:41] VITALS: BP 141/92; PULSE 90; RESP 16; O2SAT 98
[2017-03-23 04:42] LABS: AUTOMATED NEUTROPHIL # 4.8 TH/MM3 (1.8-7.7); BASOPHIL # 0.1 TH/MM3 (0-0.2); BASOPHIL % 0.8 % (0.0-2.0); EOSINOPHIL # 0.1 TH/MM3 (0-0.4); EOSINOPHIL % 0.9 % (0.0-4.0); HEMATOCRIT 41.1 % (39.0-51.0); HEMO FLAGS DIFF FINAL; LYMPH % 27.6 % (9.0-44.0); LYMPHOCYTE # 2.2 TH/MM3 (1.0-4.8); MEAN CELL VOLUME 91.3 FL (80.0-100.0); MONO % 7.5 % (0.0-8.0); NEUT % 63.2 % (16.0-70.0); PLATELET COUNT 240 TH/MM3 (150-450); RED CELL DISTRIBUTION WIDTH 12.7 % (11.6-17.2); WHITE BLOOD COUNT 7.8 TH/MM3 (4.0-11.0)
[2017-03-23 04:43] LABS: BLOOD, URINE TRACE (NEG); GLUCOSE,URINE NEG (NEG); KETONE, URINE NEG (NEG); NITRITE,URINE NEG (NEG)
[2017-03-23 04:48] LABS: URINE COLOR YELLOW (YELLW/STRAW)
[2017-03-23 04:50] LABS: MUCUS URINE MOD /lpf (OCC)
[2017-03-23 04:51] LABS: SQUAMOUS EPITHELIAL CELL URINE 0-5 /hpf (0-5)
[2017-03-23 04:52] LABS: WBC, URINE 0-2 /hpf (0-5)
[2017-03-23 04:53] LABS: COMMENT (UR) CULT NOT INDICATED; CULTURE IF INDICATED CULT NOT INDICATED
[2017-03-23] MEDS ORDERED: PROCHLORPERAZINE INJ 10 MG/2 ML VIAL IV PUSH ONE (05:00)
[2017-03-23] MEDS ORDERED: KETOROLAC TROMETHAMINE 60 MG/2 ML (IM) VIAL IVP ONE (05:00)
[2017-03-23 05:03] LABS: CHLORIDE 105 MEQ/L (98-107); POTASSIUM 3.8 MEQ/L (3.5-5.1); SODIUM (NA) 139 MEQ/L (136-145)
[2017-03-23 05:07] LABS: ANION GAP 8 MEQ/L (5-15); BICARBONATE 26.4 MEQ/L (21.0-32.0); BLOOD UREA NITROGEN 19 MG/DL (7-18)
[2017-03-23 05:10] LABS: ALT (GPT) 17 U/L (12-78); AST (GOT) 12 U/L (15-37); GLOMERULAR FILTRATION RATE 79 ML/MIN (>89)
[2017-03-23 05:12] LABS: TOTAL BILIRUBIN ADULT 0.5 MG/DL (0.2-1.0)
[2017-03-23 05:13] LABS: ALKALINE PHOSPHATASE 42 U/L (45-117)
--- NOTE | 2017-03-23 05:39 | RADRPT ---
EXAM DATE/TIME: 03/23/2017 05:10 [facility] COMPARISON: CT BRAIN W/O CONTRAST, October 23, 2016, 16:09. INDICATIONS : Left facial pain. Evaluate for cerebrovascular accident. RADIATION DOSE: 61.84 CTDIvol (mGy) MEDICAL HISTORY : None SURGICAL HISTORY : None. ENCOUNTER: Initial ACUITY: 1 day PAIN SCALE: 8/10 LOCATION: Left facial TECHNIQUE: Multiple contiguous axial images were obtained of the head. Using automated exposure control and adj ustment of the mA and/or kV according to patient size, radiation dose was kept as low as reasonably a chievable to obtain optimal diagnostic quality images. DICOM format image data is available electro nically for review and comparison. FINDINGS: CEREBRUM: The ventricles are normal for age. No evidence of midline shift, mass lesion, hemorrhage or acute in farction. No extra-axial fluid collections are seen. POSTERIOR FOSSA: The cerebellum and brainstem are intact. The 4th ventricle is midline. The cerebellopontine angle i s unremarkable. EXTRACRANIAL: The visualized portion of the orbits is intact. SKULL: The calvaria is intact. No evidence of skull fracture. CONCLUSION: 1. No evidence of acute intracranial pathology. No masses are identified. Greg White MD on March 23, 2017 at 5:37 Board Certified Radiologist. This report was verified electronically.
[2017-03-23 05:55] VITALS: RESP 16
[2017-03-23 06:14] VITALS: BP 107/66; PULSE 96; O2SAT 98
[2017-03-23] MEDS ORDERED: BUTA1CAP PO (06:32)
[2017-03-23] MEDS ORDERED: ZOFR4TAB PO (06:32)
== END 2017-03-23 06:40 | disposition home or self-care (01) ==
LOC: PHED 03:38
DX: G43.909 Migraine, unspecified, not intractable, without status migrainosus (principal)
CPT/HCPCS: 70450; 80053; 81001; 85025; 96361; 96372; 96374; 96375; 99285; J0780; J1885; J2405; J3030; J7030